=== PATIENT | male | born 1965 | race Two or more races ===

== ENCOUNTER 2020-02-18 13:50 | Inpatient (IN) | payer MEDICAID ==
[2020-02-18] VITALS (7 sets, daily range): BP systolic 99–128; BP diastolic 61–77
[~2020-02-18] VITALS: Ht 170.2 cm; Wt 88.5 kg
[2020-02-18] MEDS ORDERED: DEXTROSE 50% WATER 50ML SYRINGE IV PRN (15:30)
[2020-02-18] MEDS ORDERED: SIMV-46 PO (15:38)
[2020-02-18] MEDS ORDERED: AMLO10TA4 PO (15:38)
[2020-02-18] MEDS ORDERED: TEMA30CA PO (15:38)
[2020-02-18] MEDS ORDERED: METF-414 PO (15:38)
[2020-02-18] MEDS ORDERED: IPRATROPIUM/ALBUTEROL 0.5-3(2.5)MG/3ML NEB NEB PRN (16:45)
[2020-02-18] MEDS ORDERED: ACETAMINOPHEN 650MG SUPP PR PRN (16:45)
[2020-02-18] MEDS ORDERED: ONDANSETRON HCL 4MG/2ML INJ IV PRN (16:45)
[2020-02-18] MEDS ORDERED: CLONIDINE 0.1MG TABLET PO PRN (16:45)
[2020-02-18] MEDS ORDERED: MORPHINE SULFATE 2 MG/ML CPJ (NOT FOR IM USE) IV PRN (16:45)
[2020-02-18] MEDS ORDERED: HYDROCODONE/ACETAMINOPHEN 5/325MG TABLET PO PRN (16:45)
[2020-02-18] MEDS ORDERED: ACETAMINOPHEN 325MG TABLET PO PRN (16:45)
[2020-02-18] MEDS: BLOOD SUGAR DIAGNOSTIC STRIP TEST SCH ×2 (16:50→20:10)
[2020-02-18 16:58] LABS: BASOPHILS % 0.4 % (0.0-2.0); EOSINOPHILS % 2.8 % (0.0-5.0); HEMATOCRIT. 31.2 % (42.0-52.0); HEMOGLOBIN. 10.2 g/dL (14.0-18.0); LYMPHOCYTES % 12.7 % (20.0-50.0); MEAN CORPUSCULAR HEMOGLOBIN 25.5 pg (28.0-32.0); MEAN CORPUSCULAR VOLUME 77.6 fL (80.0-94.0); MEAN PLATELET VOLUME 8.1 fl (7.4-10.4); MONOCYTES % 9.5 % (2.0-8.0); NEUTROPHILS % 74.6 % (40.0-76.0); PLATELET 272 x1000/uL (130-400); RED BLOOD CELL COUNT 4.02 mill/uL (4.7-6.1)
[2020-02-18 17:05] LABS: INR 0.9; PARTIAL THROMBOPLASTIN TIME 26.2 sec (23.4-31.0); PROTHROMBIN TIME 10.1 sec (9.6-11.0)
[2020-02-18 17:07] LABS: CHLORIDE 103 mEq/L (98-107)
[2020-02-18 17:15] LABS: TOTAL IRON BINDING CAPACITY 434 ug/dL (250-450)
[2020-02-18] MEDS: INSULIN LISPRO 100 UNITS/ML SUBCUT SCH ×2 (17:20→20:40)
[2020-02-18] MEDS: PANTOPRAZOLE SODIUM 40 MG/VIAL IV SCH (17:52)
[2020-02-18] MEDS: FERROUS SULFATE 325MG TABLET PO SCH (17:53)
[2020-02-18] MEDS ORDERED: ENOXAPARIN 40MG/0.4ML SYR SUBCUT SCH (18:00)
[2020-02-18] MEDS ORDERED: PNEUMOCOCCAL 23-VAL P-SAC VAC 0.5 ML IM ONE (18:45)
[2020-02-18] MEDS ORDERED: IRON SUCROSE COMPLEX 100 MG/5 ML ML IV SCH (19:00)
[2020-02-18] MEDS: ATORVASTATIN CALCIUM 10MG TABLET PO SCH (20:09)
[2020-02-18] MEDS: IRON SUCROSE COMPLEX 100 MG/5 ML ML IV SCH (20:09)
[2020-02-18] MEDS: CARVEDILOL 3.125 MG TABLET PO SCH (20:10)
[2020-02-19] VITALS (14 sets, daily range): BP systolic 91–118; BP diastolic 62–85
[2020-02-19] MEDS: BLOOD SUGAR DIAGNOSTIC STRIP TEST SCH ×4 (06:11→20:26)
[2020-02-19 06:42] LABS: BASOPHILS % 0.3 % (0.0-2.0); EOSINOPHILS % 3.6 % (0.0-5.0); HEMATOCRIT. 29.8 % (42.0-52.0); HEMOGLOBIN. 9.6 g/dL (14.0-18.0); LYMPHOCYTES % 12.4 % (20.0-50.0); MEAN CORPUSCULAR HEMOGLOBIN 25.1 pg (28.0-32.0); MEAN PLATELET VOLUME 7.9 fl (7.4-10.4); MONOCYTES % 10.6 % (2.0-8.0); NEUTROPHILS % 73.1 % (40.0-76.0); PLATELET 315 x1000/uL (130-400); RED BLOOD CELL COUNT 3.82 mill/uL (4.7-6.1); RED CELL DISTRIBUTION WIDTH 18.8 % (11.6-14.6)
[2020-02-19 06:53] LABS: CHLORIDE 105 mEq/L (98-107)
[2020-02-19] MEDS: INSULIN LISPRO 100 UNITS/ML SUBCUT SCH ×4 (07:20→20:26)
[2020-02-19 07:31] LABS: *AMPHETAMINES SCREEN URINE NEGATIVE (NEGATIVE); *BARBITURATES SCREEN URINE NEGATIVE (NEGATIVE); *BENZODIAZEPINES SCREEN URINE NEGATIVE (NEGATIVE); *COCAINE SCREEN URINE NEGATIVE (NEGATIVE)
[2020-02-19 07:32] LABS: CANNABINOID URINE SCREEN NEGATIVE (NEGATIVE); METHADONE URINE SCREEN NEGATIVE (NEGATIVE); OPIATES URINE SCREEN NEGATIVE (NEGATIVE); PHENCYCLIDINE URINE SCREEN NEGATIVE (NEGATIVE)
[2020-02-19] MEDS: PANTOPRAZOLE SODIUM 40 MG/VIAL IV SCH (08:49)
[2020-02-19] MEDS: CARVEDILOL 3.125 MG TABLET PO SCH ×2 (09:00→20:14)
[2020-02-19] MEDS: FOLIC ACID 1MG TABLET PO SCH (09:00)
[2020-02-19] MEDS: FERROUS SULFATE 325MG TABLET PO SCH (09:00)
[2020-02-19] MEDS ORDERED: HEPARIN SODIUM 1,000 UNIT/1ML VIAL IV ONE (10:05)
[2020-02-19] MEDS ORDERED: NITROGLYCERIN 50MCG/ML 10ML VIAL (CATH LAB) IV ONE (10:05)
[2020-02-19] MEDS ORDERED: NICARDIPINE 100MCG/ML 10ML VIAL (CATH LAB) IV ONE (10:05)
[2020-02-19] MEDS ORDERED: LIDOCAINE HCL 1% 20ML VIAL (Pyxis) INJ ONE (10:37)
[2020-02-19] MEDS ORDERED: FENTANYL CITRATE/PF 50MCG/ML 2ML VIAL ONE (10:38)
[2020-02-19] MEDS ORDERED: MIDAZOLAM HCL 2 MG/2 ML VIAL ONE (10:38)
[2020-02-19] MEDS ORDERED: IODIXANOL 320MG/ML 100 ML BOTTLE IV ONE (10:38)
[2020-02-19] MEDS ORDERED: ASPIRIN/SOD BICARB/CITRIC ACID 324MG TAB EFF ONE (10:50)
[2020-02-19] MEDS ORDERED: ACETAMINOPHEN 325MG TABLET PO PRN (12:00)
[2020-02-19] MEDS ORDERED: ATROPINE SULFATE 1MG/10ML SYR IV PRN (12:00)
[2020-02-19] MEDS ORDERED: SODIUM CHLORIDE 0.45% 1,000 ML IV NR (12:00)
[2020-02-19] MEDS ORDERED: MORPHINE SULFATE 2 MG/ML CPJ (NOT FOR IM USE) IV PRN (12:00)
[2020-02-19] MEDS ORDERED: ONDANSETRON HCL 4MG/2ML INJ IV PRN (12:00)
[2020-02-19] MEDS: IRON SUCROSE COMPLEX 100 MG/5 ML ML IV SCH (20:14)
[2020-02-19] MEDS: ATORVASTATIN CALCIUM 10MG TABLET PO SCH (20:14)
[2020-02-19] MEDS: ZOLPIDEM TARTRATE 5MG TABLET PO PRN (21:05)
[2020-02-20] VITALS (12 sets, daily range): BP systolic 101–142; BP diastolic 61–88
[2020-02-20] MEDS: INSULIN LISPRO 100 UNITS/ML SUBCUT SCH ×4 (05:55→21:00)
[2020-02-20] MEDS: BLOOD SUGAR DIAGNOSTIC STRIP TEST SCH ×4 (05:55→20:57)
[2020-02-20 06:37] LABS: BASOPHILS % 0.6 % (0.0-2.0); EOSINOPHILS % 4.6 % (0.0-5.0); HEMATOCRIT. 29.1 % (42.0-52.0); HEMOGLOBIN. 9.5 g/dL (14.0-18.0); MEAN CORPUSCULAR HEMOGLOBIN 25.3 pg (28.0-32.0); MEAN CORPUSCULAR VOLUME 77.5 fL (80.0-94.0); MEAN PLATELET VOLUME 7.6 fl (7.4-10.4); MONOCYTES % 11.1 % (2.0-8.0); NEUTROPHILS % 68.7 % (40.0-76.0); PLATELET 331 x1000/uL (130-400); RED BLOOD CELL COUNT 3.76 mill/uL (4.7-6.1)
[2020-02-20 07:16] LABS: CHLORIDE 104 mEq/L (98-107)
[2020-02-20] MEDS: PANTOPRAZOLE SODIUM 40 MG/VIAL IV SCH ×2 (08:44→20:55)
[2020-02-20] MEDS: FOLIC ACID 1MG TABLET PO SCH (08:44)
[2020-02-20] MEDS: CARVEDILOL 3.125 MG TABLET PO SCH ×2 (08:44→20:57)
[2020-02-20] MEDS: ATORVASTATIN CALCIUM 10MG TABLET PO SCH (20:55)
[2020-02-20] MEDS: IRON SUCROSE COMPLEX 100 MG/5 ML ML IV SCH (20:55)
[2020-02-20] MEDS: ZOLPIDEM TARTRATE 5MG TABLET PO PRN (21:15)
[2020-02-21] VITALS (11 sets, daily range): BP systolic 102–124; BP diastolic 61–83
[2020-02-21 06:43] LABS: PARTIAL THROMBOPLASTIN TIME 27.7 sec (23.4-31.0); PROTHROMBIN TIME 10.4 sec (9.6-11.0)
[2020-02-21 06:44] LABS: BASOPHILS % 0.3 % (0.0-2.0); HEMATOCRIT. 30.7 % (42.0-52.0); HEMOGLOBIN. 9.9 g/dL (14.0-18.0); LYMPHOCYTES % 15.6 % (20.0-50.0); MEAN CORPUSCULAR HEMOGLOBIN 25.3 pg (28.0-32.0); MEAN CORPUSCULAR VOLUME 78.5 fL (80.0-94.0); MEAN PLATELET VOLUME 7.5 fl (7.4-10.4); MONOCYTES % 11.3 % (2.0-8.0); NEUTROPHILS % 67.8 % (40.0-76.0); PLATELET 361 x1000/uL (130-400); RED BLOOD CELL COUNT 3.92 mill/uL (4.7-6.1); RED CELL DISTRIBUTION WIDTH 19.4 % (11.6-14.6)
[2020-02-21 06:48] LABS: CHLORIDE 104 mEq/L (98-107)
[2020-02-21] MEDS: BLOOD SUGAR DIAGNOSTIC STRIP TEST SCH ×4 (06:50→20:33)
[2020-02-21] MEDS: INSULIN LISPRO 100 UNITS/ML SUBCUT SCH ×4 (06:50→21:00)
[2020-02-21] MEDS: FOLIC ACID 1MG TABLET PO SCH (09:00)
[2020-02-21] MEDS: PANTOPRAZOLE SODIUM 40 MG/VIAL IV SCH ×2 (09:00→20:32)
[2020-02-21] MEDS: CARVEDILOL 3.125 MG TABLET PO SCH ×2 (09:00→20:34)
[2020-02-21] MEDS ORDERED: FENTANYL CITRATE/PF 50MCG/ML 2ML VIAL IV PRN (10:45)
[2020-02-21] MEDS ORDERED: FENTANYL CITRATE/PF 50MCG/ML 2ML VIAL ONE (10:46)
[2020-02-21] MEDS ORDERED: MIDAZOLAM HCL 5 MG/5 ML VIAL ONE (10:46)
[2020-02-21] MEDS ORDERED: MIDAZOLAM HCL 2 MG/2 ML VIAL IV PRN (10:46)
[2020-02-21] MEDS ORDERED: SORBITOL 70% SOLN 30ML PO NR (20:00)
[2020-02-21] MEDS: ATORVASTATIN CALCIUM 10MG TABLET PO SCH (20:34)
[2020-02-22] VITALS (10 sets, daily range): BP systolic 105–133; BP diastolic 64–88
[2020-02-22] MEDS ORDERED: SORBITOL 70% SOLN 30ML PO SCH (05:00)
[2020-02-22 06:44] LABS: BASOPHILS % 0.9 % (0.0-2.0); HEMATOCRIT. 33.3 % (42.0-52.0); HEMOGLOBIN. 10.8 g/dL (14.0-18.0); LYMPHOCYTES % 20.1 % (20.0-50.0); MEAN CORPUSCULAR HEMOGLOBIN 25.6 pg (28.0-32.0); MEAN CORPUSCULAR VOLUME 79.2 fL (80.0-94.0); MEAN PLATELET VOLUME 7.5 fl (7.4-10.4); MONOCYTES % 11.9 % (2.0-8.0); NEUTROPHILS % 62.1 % (40.0-76.0); PLATELET 404 x1000/uL (130-400); RED BLOOD CELL COUNT 4.21 mill/uL (4.7-6.1); RED CELL DISTRIBUTION WIDTH 19.5 % (11.6-14.6)
[2020-02-22] MEDS: INSULIN LISPRO 100 UNITS/ML SUBCUT SCH ×3 (07:20→17:25)
[2020-02-22] MEDS: BLOOD SUGAR DIAGNOSTIC STRIP TEST SCH ×3 (07:22→17:18)
[2020-02-22 07:55] LABS: CHLORIDE 105 mEq/L (98-107)
[2020-02-22] MEDS ORDERED: NA PHOS,M-B/NA PHOS,DI-BA ENEMA 118ML PR SCH (08:30)
[2020-02-22] MEDS: CARVEDILOL 3.125 MG TABLET PO SCH (09:00)
[2020-02-22] MEDS: PANTOPRAZOLE SODIUM 40 MG/VIAL IV SCH (09:00)
[2020-02-22] MEDS: FOLIC ACID 1MG TABLET PO SCH (09:00)
[2020-02-22] MEDS ORDERED: BACTERIOSTATIC SODIUM CHLORIDE 0.9% 30ML VIAL IJ ONE (11:30)
[2020-02-22] MEDS ORDERED: MIDAZOLAM HCL 5 MG/5 ML VIAL ONE (13:48)
[2020-02-22] MEDS ORDERED: SIMETHICONE 40 MG/0.6 ML 30ML ONE (13:48)
[2020-02-22] MEDS ORDERED: FENTANYL CITRATE/PF 50MCG/ML 2ML VIAL ONE (13:49)
[2020-02-22] MEDS ORDERED: MIDAZOLAM HCL 5 MG/5 ML VIAL IV PRN (13:52)
[2020-02-22] MEDS ORDERED: FENTANYL CITRATE/PF 50MCG/ML 2ML VIAL IV PRN (13:53)
[2020-02-22] MEDS ORDERED: SUCR1TAB MT (15:17)
[2020-02-22] MEDS ORDERED: OMEP20TA2 MT (15:17)
== END 2020-02-22 20:05 | disposition home or self-care (01) | DRG 191 ==
LOC: 3WST 13:50
PROVIDERS: ADMIT Internal Medicine Nephrology; ATTEND Internal Medicine Nephrology
PROC: 4A023N7 Measurement of Cardiac Sampling and Pressure, Left Heart, Percutaneous Approach (ICD-10-PCS; principal; 2020-02-19)
PROC: B211YZZ Fluoroscopy of Multiple Coronary Arteries using Other Contrast (ICD-10-PCS; 2020-02-19)
PROC: B215YZZ Fluoroscopy of Left Heart using Other Contrast (ICD-10-PCS; 2020-02-19)
PROC: B2111ZZ Fluoroscopy of Multiple Coronary Arteries using Low Osmolar Contrast (ICD-10-PCS; 2020-02-19)
PROC: 0DBN8ZZ Excision of Sigmoid Colon, Via Natural or Artificial Opening Endoscopic (ICD-10-PCS; 2020-02-22)
DX: I25.10 Atherosclerotic heart disease of native coronary artery without angina pectoris (principal); I11.0 Hypertensive heart disease with heart failure; I50.22 Chronic systolic (congestive) heart failure; D50.9 Iron deficiency anemia, unspecified; E11.9 Type 2 diabetes mellitus without complications; E78.5 Hyperlipidemia, unspecified; I25.2 Old myocardial infarction; R07.9 Chest pain, unspecified; I25.5 Ischemic cardiomyopathy; K25.9 Gastric ulcer, unspecified as acute or chronic, without hemorrhage or perforation; K63.5 Polyp of colon
CPT/HCPCS: 36415; 80048; 80061; 80305; 82728; 82962; 83036; 83540; 83550; 84443; 84484; 85025; 85044; 88305; 88312; 88313; 90732; 93005; 93306; 93458; C1769; C1887; C1893; C9113; J1644; J1815; J2250; J3010; J3490; Q9967